=== PATIENT | male | born 1985 | race Caucasian/White ===

== ENCOUNTER 2017-02-19 03:22 | Emergency (ER) | payer OTHER ==
--- NOTE | 2017-02-19 03:34 | EDPHY ---
H & P HPI/ROS: Chief Complaint: Altered mental status, Taser injury HPI: 31-year-old male who is found on some his property attempting to break into a home. When he was approached by police he charge them and they tased him. Patient admits to drinking alcohol tonight. Denies other drug use. Is currently without complaint. Denies loss of consciousness. Is awake but disoriented. Denies past medical history. ROS: 10 point Review of Systems is negative except as noted in the HPI. PMH: Denies Social History: No smoking, positive for alcohol, denies other drug use Family History: non-contributory Physical Exam: Gen: Awake, Alert, No Distress HEENT: Multiple facial abrasions, no suturable lacerations. No deformities Nose: no rhinorrhea Eyes: PERRLA, EOMI Mouth: Moist mucosa Neck: Supple, no JVD Chest: nontender, lungs clear to auscultation, multiple contusions, there is a Taser fadumo in his left lower chest wall. Heart: S1, S2 normal, no murmur Abd: Soft, non-tender, no guarding Back: no CVA tenderness, no midline tenderness Ext: no edema, non-tender Skin: no rash Neuro: CN II-XII intact, Sensation grossly intact, Strength 5/5 in bilateral upper and lower extremities Constitutional: Initial Vital Signs Temperature (C) 36.4 C 02/19/17 03:25 Heart Rate 105 H 02/19/17 03:25 Respiratory Rate 18 02/19/17 03:25 Blood Pressure 118/89 H 02/19/17 03:25 O2 Sat (%) 94 02/19/17 03:25 O2 Delivery Mode Room Air Allergies/Adverse Reactions: clorazepate dipotassium Allergy (Verified 02/19/17 03:39) Home Medications: Medication Instructions Recorded NK [No Known Home Meds] 02/19/17 Medical Decision Making ED Course/Re-evaluation: Taser fadumo removed by me. Patient is awake but disoriented. I have sent a blood alcohol, chemistry and CBC. Patient has acidotic which is consistent with his Taser. Blood sugar is normal. His white count is normal. He is intoxicated with a blood alcohol of 263. This is consistent with his altered mental status. His no evidence of head injury. Is head is atraumatic. He is otherwise answering questions appropriately. He is medically clear for snf. - Data Points Laboratory Results: Laboratory Results 02/19/17 03:25 02/19/17 03:25 02/19/17 02/19/17 03:25 03:25 WBC 8.82 10^3/uL 10^3/uL (3.80-9.50) RBC 5.04 10^6/uL 10^6/uL (4.40-6.38) Hgb 15.8 g/dL g/dL (13.7-17.5) Hct 47.6 % % (40.0-51.0) MCV 94.4 fL fL (81.5-99.8) MCH 31.3 pg pg (27.9-34.1) MCHC 33.2 g/dL g/dL (32.4-36.7) RDW 12.3 % % (11.5-15.2) Plt Count 320 10^3/uL 10^3/uL (150-400) MPV 11.0 fL fL (8.7-11.7) Neut % (Auto) 49.9 % % (39.3-74.2) Lymph % (Auto) 41.7 % % (15.0-45.0) Stephenson % (Auto) 6.2 % % (4.5-13.0) Eos % (Auto) 0.9 % % (0.6-7.6) Baso % (Auto) 0.8 % % (0.3-1.7) Nucleat RBC Rel Count 0.0 % % (0.0-0.2) Absolute Neuts (auto) 4.40 10^3/uL 10^3/uL (1.70-6.50) Absolute Lymphs (auto) 3.68 10^3/uL H 10^3/uL (1.00-3.00) Absolute Monos (auto) 0.55 10^3/uL 10^3/uL (0.30-0.80) Absolute Eos (auto) 0.08 10^3/uL 10^3/uL (0.03-0.40) Absolute Basos (auto) 0.07 10^3/uL 10^3/uL (0.02-0.10) Absolute Nucleated RBC 0.00 10^3/uL 10^3/uL (0-0.01) Immature Gran % 0.5 % % (0.0-1.1) Immature Gran # 0.04 10^3/uL 10^3/uL (0.00-0.10) Sodium 140 mEq/L mEq/L (134-144) Potassium 3.8 mEq/L mEq/L (3.5-5.2) Chloride 101 mEq/L mEq/L (97-110) Carbon Dioxide 13 mEq/l L mEq/l (22-31) Anion Gap 26 mEq/L H mEq/L (8-16) BUN 11 mg/dL mg/dL (7-23) Creatinine 1.5 mg/dL H mg/dL (0.7-1.3) Estimated GFR 55 Glucose 95 mg/dL mg/dL (70-100) Calcium 9.6 mg/dL mg/dL (8.5-10.4) Ethyl Alcohol 263 mg/dL H mg/dL (0-10) Departure - Departure Disposition: Home, Routine, Self-Care Clinical Impression: Alcohol intoxication, Taser injury Condition: Good Instructions: Alcohol Intoxication (ED), Care After Taser Removal (ED) Additional Instructions: Please avoid binge drinking alcohol. Return emergency department for increasing confusion, nausea, vomiting, worsening headache, or any other concerns. Medically clear for snf. Referrals: Esau Danielle MD [Medical Doctor] - As per Instructions
[2017-02-19 03:43] LABS: % IMMATURE GRANULYOCYTES 0.5 % (0.0-1.1); ABSOLUTE IMMATURE GRANULOCYTES 0.04 10^3/uL (0.00-0.10); ADD DIFF? NO; ADD MORPH? NO; ADD SCAN? NO; ATYPICAL LYMPHOCYTE FLAG 10 (0-99); FRAGMENT RBC FLAG 0 (0-99); HEMATOCRIT 47.6 % (40.0-51.0); HEMOGLOBIN 15.8 g/dL (13.7-17.5); LEFT SHIFT FLG 0 (0-99); LIPEMIA HEMOLYSIS FLAG 80 (0-99); MEAN CELL HEMOGLOBIN 31.3 pg (27.9-34.1); MEAN CELL HEMOGLOBIN CONCENTR. 33.2 g/dL (32.4-36.7); MEAN CELL VOLUME 94.4 fL (81.5-99.8); PLATELET CLUMPS FLAG 0 (0-99); PLATELET COUNT 320 10^3/uL (150-400); RED BLOOD CELL COUNT 5.04 10^6/uL (4.40-6.38); RED CELL DISTRIBUTION WIDTH 12.3 % (11.5-15.2)
[2017-02-19 03:49] VITALS: TEMP 97.5; O2SAT 94
[2017-02-19 03:57] LABS: ANION GAP 26 mEq/L (8-16); CALCIUM 9.6 mg/dL (8.5-10.4); CARBON DIOXIDE 13 mEq/l (22-31); CHLORIDE 101 mEq/L (97-110); CREATININE 1.5 mg/dL (0.7-1.3); ETHANOL SERUM 263 mg/dL (0-10); GLOMERULAR FILTRATION RATE 55; GLUCOSE 95 mg/dL (70-100); POTASSIUM 3.8 mEq/L (3.5-5.2); SODIUM 140 mEq/L (134-144)
[2017-02-19 04:51] VITALS: BP 135/91; PULSE 89; RESP 16
== END 2017-02-19 04:48 | disposition home or self-care (01) ==
DX: F10.129 Alcohol abuse with intoxication, unspecified (principal); T75.4XXA Electrocution, initial encounter
CPT/HCPCS: G0480